=== PATIENT | male | born 1935 | race Caucasian/White ===

== ENCOUNTER 2023-10-08 05:02 | Inpatient (IN) | payer MEDICARE, BC, SELFPAY ==
[2023-09-29 11:11] VITALS: BMI 22.2
[2023-09-29 11:52] LABS: % Basophils 0.7 % (0-2); % Eosinophils 7.8 % (0-6); % Immature Granulocytes 0.5 % (0-0.5); % Lymphocytes 33.1 % (20.5-51.1); % Monocytes 11.3 % (1.7-9.3); % Neutrophils 46.6 % (42.2-75.2); Absolute Basophils 0.1 10^3/uL (0-0.2); Absolute Eosinophils 0.7 10^3/uL (0-0.7); Absolute Lymphocytes 2.9 10^3/uL (1.2-3.4); Absolute Neutrophils 4.1 10^3/uL (1.4-6.5); Hematocrit 36.9 % (39.0-52.0); Hemoglobin 12.2 g/dL (13.0-18.0); Mean Corp Hgb Conc. 33.1 g/dL (33.0-37.0); Mean Corpuscular Volume 99.7 fL (80.0-94.0); Mean Platelet Volume 8.4 fL (7.4-10.4); Nucleated Red Blood Cells % 0 % (-); Platelet Count 182 10^3/uL (130-400); Red Cell Dist. Width 14.1 % (11.5-14.5); White Blood Cell Count 8.7 10^3/uL (4.8-10.8)
[2023-09-29 12:02] LABS: INR 1.01; PT 13.5 Sec (11.4-14.6)
[2023-09-29 12:03] LABS: APTT 26.7 Sec (23.4-35.0)
[2023-09-29 12:09] LABS: ALT (SGPT) 12 U/L (0-50); AST (SGOT) 24 U/L (17-59); Alkaline Phosphatase 75 U/L (38-126); Blood Urea Nitrogen 34 mg/dl (9-20); Calcium 8.9 mg/dl (8.4-10.2); Carbon Dioxide 26 mmol/L (22-30); Chloride 105 mmol/L (98-107); Direct Bilirubin 0.5 mg/dl (0.0-0.4); Estimated Creatinine Clearance 27 ml/min; Glucose 95 mg/dl (70-99); Potassium 4.3 mmol/L (3.5-5.1); Sodium 136 mmol/L (135-145); Total Bilirubin 0.6 mg/dl (0.2-1.3); Total Protein 7.7 g/dl (6.3-8.2); eGFR 33.51
[2023-09-29 12:13] LABS: NT-proBNP 1030 pg/ml
[2023-09-29 13:18] LABS: Urine Albumin Trace (Neg - Trace); Urine Bilirubin Negative (Negative); Urine Character Clear (Clear); Urine Color Straw; Urine Glucose 3+ (Negative); Urine Ketone Negative (Negative); Urine Leukocyte Negative (Negative); Urine Nitrite Negative (Negative); Urine Occult Blood Negative (Negative); Urine Specific Gravity 1.015 (<1.030); Urine Urobilinogen Negative (Neg - 1+)
--- NOTE | 2023-09-29 13:34 | HPS.HSE ---
Family Physician
-
Family Physician: Kristian Stubbs
Cardiology: Jerome Staples
Chief Complaint
-
JAMISON and fatigue
History of Present Illness
Wayne Thao is a pleasant 88-year-old male with exertional dyspnea, fatigue and known severe aortic valve stenosis. He underwent a left heart cath performed 07/17/2023 which demonstrated 70% proximal LAD stenosis with mild luminal irregularities
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 There is also some proximal to mid circumflex stenosis graded to be 70%. FloWire assessment of the 70% LAD lesion showed borderline positive flow limitation by IFR but negative flow
limitation by FFR and PCI was not performed. FloWire assessment of 70% proximal to mid circumflex lesion showing markedly flow-limiting disease which was then successfully stented with a 4.0 x 15 [place] SHANKAR with outstanding result. At that time, he
was recommended for DAPT therapy for 6 to 12 months with continued evaluation for his TAVR as the symptoms corresponded to valvular disease. His most recent transthoracic echocardiogram that was performed on 06/24/2023 showed an abnormal appearing
tricuspid aortic valve with a peak velocity greater than 4 m/s and peak/mean gradient of 66/44 mmHg. From a symptomatology standpoint he describes feeling some fatigue, falling asleep more often, and some sob with yardwork. In comparison to a year
ago he feels that his clinical status has gotten a little worse, his spouse agrees. His CT imaging with TAVR protocol has been completed, and he has appropriate coronary heights and valve dimensions. His case was reviewed by the heart team at the
shared decision making meeting and TAVR utilizing a 26mm S3 valve via left transfemoral access was felt to be the appropriate treatment.
Medical History
Past Medical History
Past Medical History: Reports HTN and Hypercholesterolemia
Additional Past Medical History:
Rheumatoid Arthritis- takes Remicade
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
Secondary hyperparathyroidism
Hypothyroidism
Suppressed plasma renin activity
Past Surgical History: Reports Cardiac (Cardiac cath with PCI 07/17/2023)
Additional Past Surgical History:
Cataract surgery
Lithotripsy
Social History
Tobacco: Former Smoker
Alcohol: None
Drug: None
Personal:
Living: With Family
Employment: Retired
Family History
Family History: Not pertinent
Allergies / Home Medications
Allergies reflects when Allergies were last updated in [facility].
Home Medications with original date entered in [facility]
Allergy/Medication List:
Allergies:
NKDA
Medications:
amLODIPine Besylate 5 MG Tablet TAKE ONE TABLET BY MOUTH AT BEDTIME
Aspir-81 81 MG Tablet Delayed Release 1 tablet Orally Once a day
Atorvastatin Calcium 40 MG Tablet 1 tablet Orally Once a day
Calcitriol 0.25 MCG Capsule 1 capsule Orally Once a day
Clopidogrel Bisulfate 75 MG Tablet 1 tablet Orally Once a dayJardiance(Empagliflozin) 25 MG Tablet 1 tablet Orally Once a day
Remicade(inFLIXimab) 100 MG Solution Reconstituted as directed Intravenous q 10 weeks, Notes: 500 mg
Review of Systems
-
History Source: Patient and Family
A 12 point ROS was completed and negative except as noted: No
Constitutional: Reports Fatigue
EENT: Reports No Symptoms
Respiratory: Reports No Symptoms and Cough
Cardiac: Reports Other (JAMISON)
Abdomen/GI: Reports No Symptoms
: Reports No Symptoms
Musculoskeletal: Reports No Symptoms
Skin: Reports No Symptoms
Neurological: Reports No Symptoms
Endocrine: Reports No Symptoms
Hematologic/Lymphatic: Reports No Symptoms
Psych: Reports No Symptoms
Physical Exam
Physical Exam
General: Well Developed, Well Nourished and No Apparent Distress
HEENT: NormoCephalic and Moist mucous membranes
Respiratory: Clear and Non Labored Respirations
Cardiac: S1/S2, Regular Rhythm, Murmur (Grade III/) and Peripheral Edema (bilateral Right>Left, +1 pitting)
Breast: Deferred by me
GI: Soft, Non Tender, Non Distended and Normal Bowel Sounds
Rectal: Deferred by Provider
Genito-urinary: Deferred by me
Musculoskeletal: Edema, Left Lower Extremity and Edema, Right Lower Extremity
Skin: Warm and Dry
Neuro: AO x 3 and No Motor Deficits
Psych: Calm and Intact Judgment/Insight
Laboratory Results
-
09/29/23 11:33
09/29/23 11:33
Laboratory Results
PT 13.5 Sec (11.4-14.6) 09/29/23 11:33
INR 1.01 09/29/23 11:33
APTT 26.7 Sec (23.4-35.0) 09/29/23 11:33
Total Bilirubin 0.6 mg/dl (0.2-1.3) 09/29/23 11:33
AST 24 U/L (17-59) 09/29/23 11:33
ALT 12 U/L (0-50) 09/29/23 11:33
Alkaline Phosphatase 75 U/L (38-126) 09/29/23 11:33
Data Reviewed
-
Diagnostic Radiology: Report Reviewed by me (No Acute Disease)
Medical Tests (Nuc Med, Echo, EKG etc): Report Reviewed by me (SR with first degree heart block)
Lab Data: Labs Reviewed by me (Patient with CKD Stage 3b. Creat 1.9 with GFR 33.51. Reviewed labs from [facility] from previous 12 months and this is patient baseline. No acute change. )
Impression/Plan
-
IMPRESSION:
Severe, symptomatic aortic stenosis and CKD stage 3B
PLAN:
Aortic Stenosis:
-Proceed with TF TAVR on 10/08/[address] Peraza and Dr. Coleman. Plan for a 26mm S3 valve via left transfemoral access. Reviewed risks of PPM, Bleeding and stroke with patient and his . Allowed for and answered questions.
Patient will remain on all his medications until next Thu. On he will take only his ASA/Plavix prior to his 529 arrival. He is aware he will receive a call on Thu. next week to confirm arrival time and answer questions.
-POD #1/#30 echocardiogram
-Cardiac rehab consult
-Continue ASA/PLavix daily
CKD Stage 3B
- Consider nephrology consult- patient known to Dr. Madsen
- Trend BUN/Creat?GFR
- limit contrast at time of TAVR
- Hydrate post TAVR
[2023-09-29 13:38] LABS: Glycohemoglobin (HgbA1c) 5.9 % (4.0-5.6)
--- NOTE | 2023-09-29 14:32 | CM ---
spoke to pt in PAT's, we discussed preop TAVR teaching including lifting and driving restrictions. he is prev indep, lives with his in a split lievel home with 6 steps to enter. he has a cane at home to use if needed. he has the TAVR educ book,
soap and instructions. he is agreeable to a f/u visit from the ct transitional care nurse after dc. plan is for TAVR 10/08/23, cm role explained and all questions answered.
[2023-10-08] VITALS (20 sets, daily range): BP systolic 104–143; BP diastolic 51–89; BMI 27.7
--- NOTE | 2023-10-08 06:09 | PTCARENOTE ---
Admitted for TAVR. Prep completed. IV placed. at bedside. Pt reports taking Plavix and Aspirin this morning. Sulaiman MONTOYA made aware.
--- NOTE | 2023-10-08 06:24 | W.CVOR.SURPR ---
CVOR Surgeon Immed Pre Op
-
I have examined this patient prior to performance of the scheduled procedure.
The patient's condition is unchanged from the time of the dictated/written History and
Physical and the patient is able to undergo the scheduled procedure.
[2023-10-08] MEDS: STERILE WATER FOR INJECTION 16 ML IV (06:55)
[2023-10-08] MEDS: ZINACEF 1500 MG IV (06:55)
[2023-10-08 08:00] LABS: ACT-LR - POC 277 Seconds (116-155)
--- NOTE | 2023-10-08 08:20 | W.IMMPOSTOP ---
Surgical Immed Post Op Note
-
Dictated: [id number]
STRUCTURAL HEART PROCEDURE NOTE: TAVR
Preoperative Dx:
Severe aortic stenosis (P/M: 66/40), mild AI
CKD 3b
RA
HTN/HLD
Secondary hyperparathyroidism
Nephrolithiasis
Postoperative Dx:
Same
Procedures:
1) R DATAWAREHOUSE DEVELOPER access w/ tactile and fluoroscopic guidance, micropuncture technique, 6Fr sheath placement, limited angiography
2) R CFV access w/ fluoroscopic guidance, micropuncture technique, 6Fr sheath placement
3) Placement of temporary RV pacing wire w/ threshold testing
4) Placement of pigtail catheter in RCC, limited aortography w/ confirmation of co-planar valve deployment angles
5) L DATAWAREHOUSE DEVELOPER access w/ tactile and fluoroscopic guidance, micropuncture technique, 6Fr sheath placement, limited angiography
6) Placement of perclose sutures x 2 into L DATAWAREHOUSE DEVELOPER, 8Fr sheath placement (partial heparinization)
7) Serial dilation of L ileofemoral system, placement of Roman E-sheath (full heparinization)
8) Wire purchase across stenotic AV; LV hemodynamic assessment
9) L TF TAVR w/ placement of 26mm HIRAL 3 valve
10) Completion aortography
11) Completion TTE (no AI, mean gradient 5mmHg)
12) Removal of valve delivery system & Roman E-sheath w/ L DATAWAREHOUSE DEVELOPER mgmt w/ perclose sutures x 2; completion angiography; 8Fr angioseal x 1; manual pressure
13) Removal of temporary pacing wire
14) Removal of R 6Fr DATAWAREHOUSE DEVELOPER sheath w/ mgmt w/ 6Fr angioseal and manual pressure (protamine)
15) Removal of R 6Fr CFV sheath w/ mgmt w/ manual pressure
Home Health Care Worker:
Dr. Armando Coleman
Cardiac Surgeon:
Dr. Amari Peraza
Anesthesia:
MAC & local to B/L groins
Cath Data:
Start: 0732hrs, Deploy: 0801hrs, End: 0817hrs
FT: 6.1min, mGy: 185.04, DAP: 20.7931, Contrast: 40mL
LVEDP: 17mmHg
Post-TTE: No AI, mean gradient 5mmHg
Implants:
Roman Lifesciences, Model [id number], 26mm, SN [id number]
Perclose x 2
8Fr angioseal x 1
6Fr angioseal x 1
Complications:
None
Condition:
Stable/guarded to recovery
--- NOTE | 2023-10-08 08:34 | ITS.CL.TAVR ---
Addendum entered and electronically signed by David Coleman MD 10/08/23 08:50:
1. Correction: In the procedure summary it should say 'successful placement of 26 mm BEN S3'. The valve placed in this patient was a 26 mm S3
2. Total contrast 40 mL Visipaque
Original Note:
Dishroom Attendant - TAVR Report
TAVR PRocedure
Procedure Report:
TRANSCATHETER AORTIC VALVE REPLACEMENT REPORT
Date: 10/08/2023
Referring physician: Jerome Hopper DO
Operators:
retail wireless sales representative: David Coleman MD
Cardiac surgeon: Amari Peraza MD
Procedure:
Conscious sedation was provided by anesthesia. Using a micropuncture technique, 6F sheaths were placed in the RFA and RFV. A transvenous pacemaker was advanced to the RV and excellent thresholds obtained. A pigtail catheter was advanced to the
aortic root where low volume injections were performed to identify an appropriate angle for valve deployment. Access was then obtained in the left femoral artery using a micropuncture technique. A 6Fsheath was placed and angiography confirmed a DREDGING INSPECTOR
puncture site. Heparin 4000 units was administered. Two perclose sutures were preset using the preclose technique. An 8F sheath was placed in the LFA and an Amplatz extra stiff wire advanced into the thoracic aorta. The ileofemoral vessels were
dilated using the Rmoan dilator. An Roman E sheath was advanced into the descending thoracic aorta. Additional heparin 3000 units was administered. The valve was crossed using a diagnostic 6F AL1 catheter and a straight wire. LVEDP was 17 mmHg.
An Amplatz extra stiff wire with a homemade curve was placed in the LV apex. Balloon aortic valvuloplasty was not performed. An Roman 26 mm Ben S3 valve was then advanced through the E sheath and prepared for transit around the aortic arch.
The valve was carefully advanced across the aortic annulus and deployed during rapid ventricular pacing. Echocardiography and aortography confirmed a an excellent result. The mean gradient was 5 mmHg with no detectable aortic insufficiency. The
valve deployment system was removed. The Roman E sheath was then removed and hemostasis obtained with the two perclose sutures and an 8 [place] Angio-Seal. Final angiography demonstrated no evidence of ileofemoral dissection/perforation and good
runoff below the common femoral artery. The pacemaker was removed and the RFV sheath removed with manual compression. The RFA sheath was removed using a 6 F angioseal.
Radiation (mGy): 185
DAP (cm2.Gy): 20.8
Fluoroscopy time: 6.1 minutes
Conclusions: Successful placement of 23 mm Ben S3 aortic valve via left transfemoral approach with no acute complications.
Copy to: Jerome Hopper DO, Kristian Stubbs DO
--- NOTE | 2023-10-08 10:04 | PTCARENOTE ---
Rec'd report from company laborer RN & pt back s/p TAVR. Pt AAOx3 w/no c/o CP or SOB. Pt is c/o 2/10 sore throat pain. Pt states he's 'very dry'. Pt allowed ice chips & sips at this time. This RN spoke w/pt & spouse re: bedrest for 4hrs post procedure &
expected OOB time to be 12:30pm. Both verbalized their understanding. Pt's VS stable. Pt SR w/HR in the 60's on telemetry monitoring. Bilat groin sites w/dressings C/D/I. + palpable peds bilat. Call dos santos within reach & plan of care ongoing.
--- NOTE | 2023-10-08 10:29 | CM ---
Chart reviewed. Patient is in the OR today. Patient is independent of ADLS, lives with his in a split level home, 6 AVTAR, ambulates with a SPC. Plan is for the patient to return home with CT Transitional RN. CM to follow
[2023-10-08] MEDS: TYLENOL 650 MG PO (12:34)
[2023-10-08] MEDS: JARDIANCE 25 MG PO (12:34)
[2023-10-08] MEDS: LOW STRENGTH ASPIRIN PO (12:35)
[2023-10-08] MEDS: PLAVIX PO (12:35)
[2023-10-08] MEDS: ROCALTROL 0.25 MCG PO (12:36)
--- NOTE | 2023-10-08 12:51 | PTCARENOTE ---
Pt assisted OOB to for 1st time since TAVR. Bilat groins w/dressings C/D/I & signs or symptoms of bleeding or hematoma. Pt reported R groin pain at a 4/10 upon standing. R groin site still remained intact. Groin pain resolved upon sitting in
chair. Pt still having some throat tenderness post procedure, pt rating as a 3/10; PRN PO Tylenol administered as ordered. Pt's VS stable. Pt eating lunch in chair w/ at bedside. Pt w/call dos santos within reach & no addtl needs at this time.
--- NOTE | 2023-10-08 13:00 | PTCARENOTE ---
RE: Difference in wgt on admission today-pt was weighed today on a balanced standing scale. Previous documented wgt from August was 17.7 kgs less, which pt states 'wasn't accurate'. Pt states 'he told them he weighed about 180lbs' when he went in
August. In checking pt's history at his Jul 2023 's office visit his wgt was 91 kgs, which is inline w/today's weight obtained.
[2023-10-08 13:41] LABS: ACT-LR - POC > 397 Seconds (116-155)
[2023-10-08] MEDS: ZINACEF 750 MG IV (17:34)
[2023-10-08] MEDS: LIPITOR 40 MG PO (17:34)
[2023-10-08] MEDS: STERILE WATER FOR INJECTION 8.30000000000000071 ML IV (17:34)
[2023-10-08] MEDS: FLUSH (NSS) 2 FLUSH IV (17:34)
[2023-10-08 20:29] LABS: Ionized Calcium 1.18 mMOL/L (1.15-1.33)
[2023-10-08 20:45] LABS: Blood Urea Nitrogen 43 mg/dl (9-20); Carbon Dioxide 23 mmol/L (22-30); Chloride 102 mmol/L (98-107); Estimated Creatinine Clearance 30 ml/min; Glucose 106 mg/dl (70-99); Magnesium 2.2 mg/dl (1.6-2.3); Potassium 4.2 mmol/L (3.5-5.1); Sodium 137 mmol/L (135-145); eGFR 35.76
--- NOTE | 2023-10-08 23:22 | PTCARENOTE ---
Pt rec'd in bed with family at bedside. B/l groins stable. Left groin with small amt of serous drainage no change noted from start of shift. neuro checks normal. freq Pvc's k and mag wnl.
[2023-10-09 04:49] VITALS: BP 137/66
[2023-10-09 05:34] LABS: Hematocrit 31.6 % (39.0-52.0); Hemoglobin 10.6 g/dL (13.0-18.0); Mean Corp Hgb Conc. 33.5 g/dL (33.0-37.0); Mean Corpuscular Hgb 32.3 pg (27.0-31.0); Mean Corpuscular Volume 96.3 fL (80.0-94.0); Mean Platelet Volume 8.6 fL (7.4-10.4); Platelet Count 135 10^3/uL (130-400); Red Blood Cell Count 3.28 10^6/uL (4.70-6.10); Red Cell Dist. Width 14.3 % (11.5-14.5); White Blood Cell Count 8.1 10^3/uL (4.8-10.8)
[2023-10-09 05:38] LABS: Blood Urea Nitrogen 36 mg/dl (9-20); Calcium 8.5 mg/dl (8.4-10.2); Carbon Dioxide 25 mmol/L (22-30); Chloride 109 mmol/L (98-107); Estimated Creatinine Clearance 32 ml/min; Glucose 99 mg/dl (70-99); Sodium 136 mmol/L (135-145)
[2023-10-09 05:44] LABS: Potassium 4.3 mmol/L (3.5-5.1)
--- NOTE | 2023-10-09 05:44 | PTCARENOTE ---
B/L groin drsg remains unchanged. soft no hematoma . pcxr completed. am labs sent Sinus with freq pvc's
--- NOTE | 2023-10-09 05:47 | W.PN.CT ---
Addendum entered and electronically signed by Amari Peraza MD 10/09/23 08:13:
I saw and examined the patient.
The PA's note was reviewed and I agree with the note.
Comment:
POD#1
No issues
- ASA/plavix
- Resume home medications
- Echocardiogram today
- D/C home today
Addendum entered and electronically signed by Jovana Valverde PA-C 10/09/23 06:36:
additional diagnosis:
-Acute postop blood loss anemia
Original Note:
Today's Communication / Plan
-
-pod #1
-no significant issues overnight
-frequent PVCs, Ventricular bigeminy overnight (K, Mg, Ca ok)
-has preexisting 1st degree AVB
-No kiki or pauses
-follow Cr- stable 1.7 today (1.8 pm 10/08 and 1.9 preop)
-CBC pending
-s/p SHANKAR to prox-mid Circ on 07/17/23 - on ASA and Plavix preop
-Echo today
-current meds (ASA, Plavix, Lipitor, Jardiance)
-encourage IS, OOB
Assessment / Plan
-
- Severe symptomatic - s/p L TF TAVR w/ placement of 26mm HIRAL 3 valve on 10/08/23, pod #1
- LVEDP: 17mmHg
- Post-TTE: No AI, mean gradient 5mmHg
- CKD 3b (Cr baseline 1.9)
- RA- on Remicade q 10 wks
- HTN/HLD
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
- EF 55-60%
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
- Suppressed plasma renin activity, elevated 24 hr urine cortisol
- Secondary hyperparathyroidism
- Nephrolithiasis
- Hypothyroidism
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
- Former smoker
- Cath 07/17/23:
1:� Double vessel CAD
2:� Known symptomatic severe aortic stenosis not invasively evaluated
3.� FloWire assessment of the 70% LAD lesion showed borderline positive flow limitation by IFR but negative flow limitation by FFR and PCI was not performed
4.� FloWire assessment of 70% proximal to mid circumflex lesion showing markedly flow-limiting disease which was then successfully stented with a 4.0 x 15 [place] SHANKAR with outstanding result
5.� Recommend dual antiplatelet therapy for minimum 6 months and maximum 12 months
- Acute postop frequent PVCs (K, Mg, Ca wnl)
Discussed patient care with: Nursing and Care Team
Subjective
Procedure
- s/p L TF TAVR w/ placement of 26mm HIRAL 3 valve on 10/08/23
-
Date of Service: October 08, 2023
Objective Data
-
Lab Results
09/29/23 11:33
10/08/23 20:22
PT 13.5 Sec (11.4-14.6) 09/29/23 11:33
INR 1.01 09/29/23 11:33
APTT 26.7 Sec (23.4-35.0) 09/29/23 11:33
Vital Signs
Vital Signs
Temp Pulse Resp BP Pulse Ox
97.8 F 77 20 116/70 96
10/08/23 19:20 10/08/23 17:15 10/08/23 19:20 10/08/23 15:34 10/08/23 19:20
CT Intake/Output/Weight
10/08/23 10/08/23 10/09/23
06:59 18:59 06:59
Intake Total 960 / 960
Output Total 350 / 350
Balance 610 / 610
SaO2: 96
Physical Exam
-
General: Awake and AOx3
Cardiovascular: Regular rate & rhythm (frequent PVCs), No Murmurs and No Rub
Incision: Other (groins are cdi, soft, nontender, no hematoma b/l)
Extremities: Edema +1 (2+DP b/l)
Data Reviewed
-
Lab Results: Results Reviewed
Medications: Active Meds Reviewed
Chest X-Ray: Report Reviewed and Image Reviewed
ECG: Report Reviewed and Image Reviewed
[2023-10-09 06:00] VITALS: BMI 27.3
[2023-10-09 07:38] VITALS: BP 108/77
--- NOTE | 2023-10-09 08:10 | W.PN.ANS.POP ---
Anesthesia Post Operative
- Anesthesia Post Op Note
Vital Signs Stable-See Nursing Note: Yes
Airway Patent: Yes
Adequate Pain Control: Yes
Change in Mental Status: No
Current Postoperative Nausea & Vomiting: No
Anesthesia Complications: No
General Anesthetic Recall: No
Unplanned Admission: No
Post Op Hydration Adequate: Yes
--- NOTE | 2023-10-09 08:51 | W.DCSUMMARY ---
Addendum entered and electronically signed by NIKITA Melendrez 10/12/23 12:08:
Edit: Should state 'He received a successful placement of a #26 mm HIRAL 3 aortic valve in the Chiropractor Assistant.' Not 'He received a successful placement of a number 23 mm HIRAL 3 aortic valve in the Chiropractor Assistant'
Original Note:
Discharge Summary
Discharge Data
Date of Admission: 10/08/23
Date of Discharge: 10/09/23
Total time spent discharging patient (in min): 25
-
Pending Results: No
Hospital Course
Primary care physician:
Kristian Stubbs
Outpatient legal manager:
Jerome Hopper
Inpatient consultants:
[facility] cardiology
Procedures:
1. Left transfemoral transcatheter aortic valve replacement with placement of number 26 mm HIRAL 3 valve
Primary Diagnosis:
1. Severe Aortic Stenosis
Secondary Diagnoses:
1. Chronic kidney disease stage III
2. Rheumatoid arthritis
3. Hypertension
4. Hyperlipidemia
5. Secondary hyperparathyroidism
6. Nephrolithiasis
HPI: 88-year-old male with severe aortic stenosis presents on 10/08 for an elective transfemoral transcatheter aortic valve replacement with Dr. Peraza.
Hospital course:
Patient was electively admitted on 10/[address] Peraza. He received a successful placement of a number 23 mm HIRAL 3 aortic valve in the Chiropractor Assistant. He returned to PACU and was on Levophed for blood pressure support. Levophed was
quickly weaned off and patient was transferred to IVU overnight. On 10/09 postop day #1 patient received a chest x-ray which was stable, an echocardiogram that showed a mean gradient of 12. He was deemed stable for discharge and discharge
instructions were reviewed with the patient.
Home medication changes:
None
Discharge Plan
-
Patient Disposition: Home (Routine Discharge)
Discharge Diagnosis/Procedures: TF-TAVR
Condition: Fair
Diet: Low Cholesterol and 2 Gram Sodium
Activity: As tolerated
Driving Restrictions: No driving for 1 week
Bathing Restrictions: OK to Shower
Others Tests: Please call Dr. Hopper's office to set up a follow up echocardiogram for 30 days after your TAVR
Other Services: Cardiac Rehab
Wound Care: Please do not apply lotions, creams or powders to groin areas. Please monitor groin areas for increased pain, swelling, redness or drainage. Notify your doctor if any occur.
Specialty Instructions: Weigh Daily- Call MD for wt gain/loss 3 lbs overnight/5 lbs in 1 week
Referrals:
CT Transitional Care Nurse [Outside] (The Cardiothoracic Transitional Care Nurse will call you to set up a visit in 1-2 days.)
Kristian Stubbs, [Family Provider] -
Jerome Hopper DO [Non-Admitting Privileges] - 11/05/23 11:20 am
Prescriptions:
Continued
amlodipine 5 mg Tablet
5 mg PO DAILY
infliximab [Remicade] 100 mg Recon Soln
500 mg IV Q10W
Rx Instructions:
09/16/23- last dose
aspirin 81 mg Tablet,Chewable
81 mg PO DAILY
calcitriol 0.25 mcg Capsule
0.25 mcg PO DAILY
Jardiance 25 mg Tablet
25 mg PO DAILY
atorvastatin 40 mg Tablet
40 mg PO QPM Qty: 30 3RF
clopidogrel 75 mg Tablet
75 mg PO DAILY Qty: 30 6RF
Discharge Orders:
Discharge Patient (As Directed); Ordered 10/09/23
Ordered By: Talisha Eastman
Care Plan Goals
Care Plan Goals:
Problem: Readiness for enhanced knowledge related to diagnosis and treatment plan
Goal: Understand your diagnosis and treatment plan needs, including medications if applicable.
Instructions: Know your diagnosis, underlying causes and treatment plan options, including medications if applicable. Consult with your health care team to learn about your diagnosis and treatment plan, including medications if applicable.
[2023-10-09] MEDS: ROCALTROL 0.25 MCG PO (08:59)
[2023-10-09] MEDS: PLAVIX 75 MG PO (08:59)
[2023-10-09] MEDS: JARDIANCE 25 MG PO (08:59)
[2023-10-09] MEDS: LOW STRENGTH ASPIRIN 81 MG PO (08:59)
--- NOTE | 2023-10-09 10:18 | W.PN.CD ---
Today's Communication / Plan
-
echo
discharge planning
Impression / Plan
-
88 yo male with severe admitted s/p TAVR. H CAD s/p SHANKAR to prox-mid Circ on 07/17/23, 1st degree AVB.
# s/p TAVR
-�EKG and tele: SR, 1st degree AVB, PVC's-->stable
-echo
# CAD s/p SHANKAR to prox-mid Circ on 07/17/23�
-stable, no angina
-ASA, Plavix, statin
Physical Exam
Vital Signs/Labs
Vital Signs
Temp Pulse Resp BP Pulse Ox
98.6 F 96 18 143/64 95
10/09/23 07:38 10/09/23 07:38 10/09/23 07:38 10/08/23 22:58 10/09/23 07:38
10/08/23 10/09/23 10/10/23
06:59 06:59 06:59
Actual Weight 90 kg 88.9 kg
10/09/23 04:54
10/09/23 04:54
PT 13.5 Sec (11.4-14.6) 09/29/23 11:33
INR 1.01 09/29/23 11:33
APTT 26.7 Sec (23.4-35.0) 09/29/23 11:33
Magnesium 2.2 mg/dl (1.6-2.3) 10/08/23 20:22
09/29/23
11:33
Chp-R-Yfnwrxmfqup Pept 1030
Physical Exam
Constitutional: No acute distress and Comfortable
EENT: Moist mucous membranes
Cardiovascular: Rhythm & rate is regular, Pedal edema is absent, JVD pressure is normal and Systolic murmur present (I/ systolic )
Respiratory: Respiratory effort normal, Lungs clear to auscul. and Wheeze Absent
GI: Soft, Distention absent and Flat
Neuro/Psych: AO x 3
Data Reviewed
-
Date of Service: October 09, 2023
EKG: Other (Tele: SR, PVC's)
Labs: Labs Reviewed by me
[2023-10-09 10:25] VITALS: BP 131/56
[2023-10-09 10:32] VITALS: BP 130/53
[2023-10-09 10:37] VITALS: BP 130/53; BP 131/56; PULSE 86; O2SAT 94
[2023-10-09 11:18] VITALS: BP 132/73
--- NOTE | 2023-10-09 12:04 | CM ---
Chart received. Patient is independent of ADLS lives with his in a split level house, 6 AVTAR, ambulates with a SPC. Plan is for the patient to return home with CT Transitional Care RN.
--- NOTE | 2023-10-09 12:43 | PTCARENOTE ---
Pt AAOx3 w/no c/o CP or SOB. Pt's VS stable. Pt SR w/frequent PVC's incl bigeminy & trigeminy on telemetry monitoring-MDs aware. Bilat groin dressings C/D/I w/marked old shadowing unchanged from prev nightshift medical/surgery registered nurse. Pt's ECHO completed.
Pt's spouse at bedside waiting for possible discharge this afternoon. Pt w/call dos santos within reach & no addtl needs at this time.
--- NOTE | 2023-10-09 14:40 | PTCARENOTE ---
Pt discharged to w/personal belongings, w/spouse providing transportation. Discussed activity restrictions & follow appt information w/pt & spouse. Pt taken out via wheelchair by staff w/ providing transportation home.
== END 2023-10-09 14:58 | disposition home or self-care (01) | DRG 267 ==
LOC: IVU 05:02
PROVIDERS: Nurse Practitioner; Physician Assistant Medical; ADMITTING PHYSICIAN Thoracic Surgery (Cardiothoracic Vascular Surgery); CONSULT PHYSICIAN Internal Medicine Cardiovascular Disease; FAMILY PHYSICIAN Family Medicine
PROC: 02RF38Z Replacement of Aortic Valve with Zooplastic Tissue, Percutaneous Approach (ICD-10-PCS; 2023-10-08)
DX: I35.2 Nonrheumatic aortic (valve) stenosis with insufficiency (principal); Z00.6 Encounter for examination for normal comparison and control in clinical research program; D62 Acute posthemorrhagic anemia; N25.81 Secondary hyperparathyroidism of renal origin; N18.32 Chronic kidney disease, stage 3b; I12.9 Hypertensive chronic kidney disease with stage 1 through stage 4 chronic kidney disease, or unspecified chronic kidney disease; M06.9 Rheumatoid arthritis, unspecified; E78.00 Pure hypercholesterolemia, unspecified; I25.10 Atherosclerotic heart disease of native coronary artery without angina pectoris; E03.9 Hypothyroidism, unspecified; I49.3 Ventricular premature depolarization; I44.0 Atrioventricular block, first degree; R73.03 Prediabetes; Z95.5 Presence of coronary angioplasty implant and graft; Z87.891 Personal history of nicotine dependence; Z79.82 Long term (current) use of aspirin; Z79.02 Long term (current) use of antithrombotics/antiplatelets
CPT/HCPCS: 93308; 33361; 36415; 71045; 71046; 80048; 80053; 81003; 82248; 82330; 83036; 83735; 83880; 85025; 85027; 85347; 85610; 85730; 86850; 86900; 86901; 86920; 87070; 93005; 93306; 93321; 93325; C1760; C1769; C1894; Q9967

== ENCOUNTER → 2024-02-29 09:44 | Outpatient (REF) | payer MEDICARE, BC, SELFPAY | LOC: MRI 09:44 | PROVIDERS: ATTENDING PHYSICIAN Specialist; FAMILY PHYSICIAN Family Medicine | DX: N28.1 Cyst of kidney, acquired (principal) | CPT/HCPCS: 74181 ==

== ENCOUNTER → 2024-09-12 08:57 | Outpatient (REF) | payer MEDICARE, BC, SELFPAY | LOC: PAVMRI 08:57 | PROVIDERS: ATTENDING PHYSICIAN Specialist; FAMILY PHYSICIAN Family Medicine | DX: N25.81 Secondary hyperparathyroidism of renal origin (principal); N28.89 Other specified disorders of kidney and ureter | CPT/HCPCS: 74181 ==